=== PATIENT | male | born 1950 | race African-American/Black ===

== ENCOUNTER 2016-08-24 14:53 | Outpatient (CLI) | payer BC | END 2016-08-24 23:59 | disposition home or self-care (01) | LOC: MRI 14:53 | PROVIDERS: ATTEND Legal Medicine | DX: M70.61 Trochanteric bursitis, right hip (principal); M76.01 Gluteal tendinitis, right hip; R60.1 Generalized edema | CPT/HCPCS: 73721-TC ==

== ENCOUNTER 2018-01-15 11:00 | Outpatient (CLI) | payer BC, MEDICARE | END 2018-01-15 23:59 | disposition home or self-care (01) | LOC: WOU 11:00 | PROVIDERS: ATTEND Podiatrist Foot & Ankle Surgery | DX: M72.2 Plantar fascial fibromatosis (principal); M20.21 Hallux rigidus, right foot; M19.90 Unspecified osteoarthritis, unspecified site | CPT/HCPCS: G0463; Z7610 ==

== ENCOUNTER 2018-07-31 09:12 | Outpatient (CLI) | payer BC, MEDICARE ==
[~2018-07-31] VITALS: Ht 175.3 cm; Wt 87.1 kg
[2018-07-31] MEDS ORDERED: NITROGLYCERIN 4.9 GM SPRAY SL ONE (09:30)
[2018-07-31] MEDS ORDERED: METOPROLOL TARTRATE INJ 5 MG/5 ML AMPUL IVP ONE (09:30)
[2018-07-31] MEDS ORDERED: IV NS 0.9% 500 ML IV PRN (09:30)
[2018-07-31] MEDS ORDERED: IOHEXOL-350 100 ML VIAL IV ONE (09:43)
[2018-07-31] MEDS ORDERED: IV NS 0.9% 250 ML IV ONE (09:48)
[2018-07-31] MEDS ORDERED: CT SWABBABLE VALVE TRANS SET 1 EA INFUS.SET MC ONE (09:48)
[2018-07-31 09:49] LABS: CALCIUM, SERUM 8.6 mg/dL (8.5-10.1); POTASSIUM 3.3 mmol/L (3.5-5.1)
== END 2018-07-31 23:59 | disposition home or self-care (01) ==
LOC: CT 09:12
PROVIDERS: ATTEND Internal Medicine Interventional Cardiology
DX: I25.10 Atherosclerotic heart disease of native coronary artery without angina pectoris (principal); I48.0 Paroxysmal atrial fibrillation; M47.814 Spondylosis without myelopathy or radiculopathy, thoracic region; E11.9 Type 2 diabetes mellitus without complications; I10 Essential (primary) hypertension; N40.0 Benign prostatic hyperplasia without lower urinary tract symptoms; E78.5 Hyperlipidemia, unspecified; Z79.899 Other long term (current) drug therapy
CPT/HCPCS: 36415; 75574; 80048; J7050; Q9967

== ENCOUNTER 2024-03-08 09:13 | Outpatient (CLI) | payer BC | END 2024-03-08 23:59 | disposition home or self-care (01) | LOC: WOU 09:13 | PROVIDERS: ATTEND Podiatrist Foot & Ankle Surgery | DX: M67.972 Unspecified disorder of synovium and tendon, left ankle and foot (principal); M25.572 Pain in left ankle and joints of left foot; M79.672 Pain in left foot | CPT/HCPCS: G0463 ==